=== PATIENT | male | born 1990 | race African-American/Black ===

== ENCOUNTER 2020-10-18 11:27 | Emergency (ER) | payer OTHER ==
[2020-10-18 11:35] VITALS: BMI 22.9
[2020-10-18 13:00] LABS: BASO % 1.3 % (0-2.0); HEMOGLOBIN 15.7 GM/dL (11.7-16.9); LYMPH % 41.7 % (8-40); MCH 30.3 pg (25.7-33.7); MCHC 33.3 g/dl (32.0-35.9); MEAN CELL VOLUME 90.8 fl (80-96); MEAN PLT VOLUME 8.6 fl (7.5-11.1); MONO % 11.6 % (3.8-10.2); NEUT % 42.4 % (42.8-82.8); PLATELET COUNT 284 K/MM3 (134-434); RBC 5.18 M/mm3 (4.00-5.60); RDW 13.4 % (11.9-15.9); WHITE BLOOD COUNT 5.1 K/mm3 (4.0-10.0)
[2020-10-18 13:25] LABS: CHLORIDE 103 mmol/L (98-107); POTASSIUM 4.6 mmol/L (3.5-5.1); SODIUM 141 mmol/L (136-145)
[2020-10-18 13:26] LABS: CALCIUM 10.4 mg/dL (8.5-10.1)
[2020-10-18 13:27] LABS: ALBUMIN 4.5 g/dl (3.4-5.0); ANION GAP 7 MMOL/L (8-16); CO2 30 mmol/L (21-32); GLUCOSE,RANDOM 104 mg/dL (74-106)
[2020-10-18 13:30] LABS: CREATININE 1.6 mg/dL (0.55-1.3); SGOT/AST 22 U/L (15-37); SGPT/ALT 27 U/L (13-61)
[2020-10-18 13:32] LABS: BILIRUBIN,TOTAL 0.9 mg/dL (0.2-1); TOT PROT 8.1 g/dl (6.4-8.2)
[2020-10-18 13:33] LABS: ALK PHOS 52 U/L (45-117)
[2020-10-18 13:56] VITALS: BP 123/69; PULSE 77; TEMP 98.5
== END 2020-10-18 14:12 | disposition home or self-care (01) ==
LOC: JER 11:27
DX: M79.605 Pain in left leg (principal); R07.9 Chest pain, unspecified
CPT/HCPCS: 36415; 71046-TC-FY; 80053; 84484; 85025; 93005; 93010; 93971-TC; 99285-25